=== PATIENT | female | born 1965 | race Hispanic/Latino ===

== ENCOUNTER 2019-11-19 07:31 | Emergency (ER) | payer BC ==
[2019-11-19 08:51] LABS: RAPID GROUP A STREP NEGATIVE (NEGATIVE)
== END 2019-11-19 10:23 | disposition home or self-care (01) ==
LOC: EDH 07:31
DX: J09.X2 Influenza due to identified novel influenza A virus with other respiratory manifestations (principal); I10 Essential (primary) hypertension; E11.9 Type 2 diabetes mellitus without complications
CPT/HCPCS: 87804; 87880

== ENCOUNTER 2022-07-14 09:15 | Emergency (ER) | payer BC ==
[~2022-07-14] VITALS: Ht 149.9 cm; Wt 70.8 kg
[2022-07-14 09:17] VITALS: BP 105/70
[2022-07-14] MEDS ORDERED: KETOROLAC 30MG VIAL (30MG/ML) IM ONE (10:30)
[2022-07-14] MEDS ORDERED: IBUP-2070 PO (11:18)
[2022-07-14] MEDS ORDERED: SULF1TAB42 PO (11:18)
[2022-07-14] MEDS ORDERED: SULFAMETHOX-TMP DS 800/160 TAB PO SCH (11:30)
== END 2022-07-14 11:46 | disposition home or self-care (01) ==
LOC: EDH 09:15
DX: L72.3 Sebaceous cyst (principal); L08.9 Local infection of the skin and subcutaneous tissue, unspecified; E11.9 Type 2 diabetes mellitus without complications; I10 Essential (primary) hypertension; Z98.890 Other specified postprocedural states; Z60.2 Problems related to living alone
CPT/HCPCS: 99284; 10061; 96372; J1885